=== PATIENT | male | born 1950 | race Caucasian/White ===

== ENCOUNTER 2020-01-10 06:00 | Day surgery (SDC) | payer MEDICARE, OTHER ==
[~2020-01-10] VITALS: Ht 180.3 cm; Wt 128.0 kg
[~2020-01-10 06:00] MED LIST: ALLO300T2 PO; APIX5TAB PO; ATOR40TA71 PO; DRON400T PO; LEVO25TA9 PO; LINA145C PO; LISI10TA7 PO; METF-911 PO; METO25 PO; SEMA0.25 SQ; SODIUM CHLORIDE 0.9% 1,000 ML IV ONE; SODIUM CHLORIDE 0.9% 1,000 ML ONE; ZOLP-280 PO
[2020-01-10 08:01] VITALS: BP 92/58
[2020-01-10 08:51] LABS: COVID AG,FIA SOURCE NASOPHARYNGEAL
[2020-01-10 09:01] VITALS: BP 103/58
== END 2020-01-10 10:10 | disposition home or self-care (01) ==
LOC: SDS 06:00
PROVIDERS: ATTEND Internal Medicine Cardiovascular Disease
DX: I48.0 Paroxysmal atrial fibrillation (principal); E11.22 Type 2 diabetes mellitus with diabetic chronic kidney disease; N18.30 Chronic kidney disease, stage 3 unspecified; I12.9 Hypertensive chronic kidney disease with stage 1 through stage 4 chronic kidney disease, or unspecified chronic kidney disease; E66.01 Morbid (severe) obesity due to excess calories; G47.00 Insomnia, unspecified; M10.9 Gout, unspecified; E78.00 Pure hypercholesterolemia, unspecified; G47.33 Obstructive sleep apnea (adult) (pediatric); Z87.891 Personal history of nicotine dependence; Z79.899 Other long term (current) drug therapy; Z98.890 Other specified postprocedural states; Z20.828 Contact with and (suspected) exposure to other viral communicable diseases
CPT/HCPCS: 87426; 92960; 93005; C9803; J7030